=== PATIENT | female | born 1990 | race Two or more races ===

== ENCOUNTER 2017-06-05 21:57 | Emergency (ER) | payer MEDICAID ==
[~2017-06-05] VITALS: Ht 154.9 cm; Wt 51.7 kg
[2017-06-05 22:00] VITALS: BP 120/61
--- NOTE | 2017-06-05 23:22 | NUR ---
PT AMBULATORY TO ER BED 11 C/O PT C/O PAINFUL URINATION X 3 DAYS. PT AOX3 RR EVEN AND UNLABORED. NO SOB NOTED. NAD NOTED. NO NVD AT THIS TIME. PT NOT DIAPHORETIC. PT WAITING FOR MD WHITE. URINE COLLECTED. CALLED LAB FOR UX INTERACTION DESIGNER.
[2017-06-06 00:03] LABS: APPEARANCE,URINE CLEAR (CLEAR); BILIRUBIN,URINE NEGATIVE (NEGATIVE); BLOOD, URINE 2+ Ery/uL (NEGATIVE); COLOR,URINE YELLOW (YELLOW); KETONES,URINE NEGATIVE (NEGATIVE); LEUKOCYTE ESTERASE ,URINE 1+ (NEGATIVE); NITRITE, URINE POSITIVE (NEGATIVE); PH,URINE 6.5 (5.0-8.0); PROTEIN,URINE NEGATIVE (NEGATIVE); UGLUCOSE NEGATIVE (NEGATIVE); UROBILINOGEN,URINE 0.2 EU/dL (0.2)
[2017-06-06 00:11] LABS: BACTERIA,URINE None seen /HPF (None Seen); SQUAMOUS EPITHELIAL CELL,UR Few /HPF (None Seen)
[2017-06-06] MEDS ORDERED: SULFAMETH/TRIMETH 800/160 MG 1 UDTAB TABLET PO ONE ×2 (00:29→00:30)
== END 2017-06-06 00:33 | disposition home or self-care (01) ==
LOC: ER 22:00
DX: N39.0 Urinary tract infection, site not specified (principal)
CPT/HCPCS: 81000-TC; 84703-TC; 87086-TC; A4606; Z7610

== ENCOUNTER 2018-09-14 00:04 | Emergency (ER) | payer MEDICAID ==
[~2018-09-14] VITALS: Ht 152.4 cm; Wt 49.2 kg
--- NOTE | 2018-09-14 00:38 | NUR ---
PT BIBS. C/O "HAVING ABD PAIN AND +N/V" -SOB -ACUTE DISTRESS. AOX.4
[2018-09-14] MEDS ORDERED: ONDANSETRON HCL/PF 4 MG/2 ML VIAL ONE (00:58)
[2018-09-14] MEDS ORDERED: DICYCLOMINE HCL INJ 20 MG/2 ML AMPUL IM ONE ×2 (00:58→01:00)
[2018-09-14] MEDS ORDERED: IV NS 0.9% 1,000 ML BAG IV ONE (01:00)
[2018-09-14] MEDS ORDERED: ONDANSETRON HCL/PF 4 MG/2 ML VIAL IVP ONE (01:00)
[2018-09-14 01:08] LABS: BASOPHILS % (AUTO) 0.5 % (0.0-2.0); HEMATOCRIT 39 % (33-45); HEMOGLOBIN 13.3 g/dL (11.5-14.8); LYMPHOCYTES # (AUTO) 0.4 /CMM (0.8-4.8); LYMPHOCYTES % (AUTO) 4.5 % (20.0-44.0); MEAN CORPUSCULAR HGB CONC 35 g/dl (31.0-36.0); MEAN CORPUSCULAR VOLUME 86 fL (82-100); MONOCYTES # (AUTO) 0.5 /CMM (0.1-1.30); MONOCYTES % (AUTO) 5.1 % (2.0-12.0); NEUTROPHILS # (AUTO) 8.1 /CMM (1.8-8.9); NEUTROPHILS % (AUTO) 89.9 % (43.0-81.0); PLATELET COUNT (AUTO) 194 /CMM (150-450); RED BLOOD CELL COUNT(AUTO) 4.47 MIL/uL (4.0-5.2)
[2018-09-14 01:15] LABS: CALCIUM, SERUM 8.5 mg/dL (8.5-10.1); CREATININE 0.7 mg/dL (0.6-1.3)
[2018-09-14 01:24] LABS: ALBUMIN 3.9 g/dL (3.4-5.0); BILIRUBIN,DIRECT 0.1 mg/dL (0.0-0.2); BILIRUBIN,TOTAL 0.5 mg/dL (0.2-1.0); TOTAL PROTEIN, SERUM 7.5 g/dL (6.4-8.2)
[2018-09-14 02:14] LABS: APPEARANCE,URINE CLEAR (CLEAR); BILIRUBIN,URINE NEGATIVE (NEGATIVE); BLOOD, URINE 1+ Ery/uL (NEGATIVE); COLOR,URINE YELLOW (YELLOW); KETONES,URINE 1+ (NEGATIVE); LEUKOCYTE ESTERASE ,URINE NEGATIVE (NEGATIVE); NITRITE, URINE NEGATIVE (NEGATIVE); PH,URINE 6.5 (5.0-8.0); PROTEIN,URINE NEGATIVE (NEGATIVE); UGLUCOSE NEGATIVE (NEGATIVE); UROBILINOGEN,URINE 0.2 EU/dL (0.2)
[2018-09-14 02:16] LABS: BACTERIA,URINE None seen /HPF (None Seen); SQUAMOUS EPITHELIAL CELL,UR Few /HPF (None Seen); WBC,URINE 0-2 /HPF (0-3)
[2018-09-14] MEDS ORDERED: POTASSIUM CHLORIDE 20 MEQ TAB.PRT.SR PO ONE ×2 (02:23→02:30)
[2018-09-14 02:43] VITALS: BP 122/71
== END 2018-09-14 02:46 | disposition home or self-care (01) ==
LOC: ER 00:07
DX: K52.9 Noninfective gastroenteritis and colitis, unspecified (principal); F41.9 Anxiety disorder, unspecified
CPT/HCPCS: 36415; 80048; 80076; 81001; 83690; 84703; 85025; 96361; 96372; 96374; 99283; J0500; J2405; J7030; 81000-TC

== ENCOUNTER 2018-09-14 15:49 | Emergency (ER) | payer MEDICAID ==
[~2018-09-14] VITALS: Ht 157.5 cm; Wt 56.7 kg
--- NOTE | 2018-09-14 16:15 | NUR ---
CAME IN FOR LOWER ABDOMINAL PAIN, DIARRHEA SINCE YESTERDAY WITH BRIGHT RED BLOOD IN STOOL SINCE THIS MORNING, CAME BACK FROM [place] 2 DAYS AGO. TO ER BED 4, HOOKED TO MONITOR, PROVIDED W WARM BLANKET, AWAITING MD WHITE.
--- NOTE | 2018-09-14 16:20 | NUR ---
DR GONZALEZ AT BEDSIDE
--- NOTE | 2018-09-14 16:36 | NUR ---
Patient discharged to home in stable condition. Written and verbal after care instructions given. Patient verbalizes understanding of instruction.
[2018-09-14 16:38] VITALS: BP 111/66
== END 2018-09-14 16:39 | disposition home or self-care (01) ==
LOC: ER 15:55
DX: R19.7 Diarrhea, unspecified (principal)